=== PATIENT | male | born 1950 | race Caucasian/White ===

== ENCOUNTER 2016-10-08 16:46 | Emergency (ER) | payer OTHER ==
[~2016-10-08] VITALS: Ht 185.4 cm; Wt 106.1 kg
[~2016-10-08 16:46] MED LIST: ASPIRIN325 MG PO; CINNAMON PLUS1 EACH PO; CLARITIN10 M3 PO; CRESTOR40 MG PO; DAILY VALUE1 EACH PO; DAILY VITE1 EAC1 PO; DIOVAN HCT 81 TABLET PO; DOCUSATE SODIU100 MG PO; FISH OIL 1,0001 EAC7 PO; GLUCOSAMINE-CH1 EA48 PO; JANUVIA100 MG PO; L-LYSINE1000 M1 PO; L-LYSINE500 M1 PO; LEVAQUIN750 MG PO; LO-DOSE ASPIRIN81 M1 PO; LOPRESSOR100 M1 PO; MELOXICAM7.5 MG PO; METFORMIN HCL1000 MG PO; METFORMIN HCL850 MG PO; NIASPAN,SLO-NI500 MG PO; PAROXETINE HCL20 MG PO; PRADAXA150 MG PO; ROPINIROLE HCL1 MG PO; SOTALOL80 MG PO; TYLENOL REGULA325 MG PO; VALSARTAN-HCTZ1 EACH PO; VITAMIN C1000 M1 PO; VITAMIN C1000 MG PO; ZETIA10 MG PO; ZINC50 M2 PO; [UNRECOGNIZED DRUG - OTHER] TP
[2016-10-08 17:17] LABS: MEAN PLAT.VOLUME 10.4 uM^3 (9.0-12.4); PLATELET COUNT 148 K/uL (156-360)
[2016-10-08 17:29] LABS: HEMATOCRIT 37.2 % (38.0-50.0); MCH 30.1 PG (29.0-34.0); MCV 94.2 FL (86-99); RBC DIS.WIDTH-SD 47.8 % (39-53); RED BLOOD COUNT 3.95 M/uL (4.00-5.50)
[2016-10-08 17:35] LABS: CHLORIDE 105 mEq/L (99-109); POTASSIUM 4.4 mEq/L (3.7-5.4); SODIUM 139 mEq/L (136-147)
[2016-10-08 17:37] LABS: GLUCOSE 188 mg/dL (70-99); WHITE BLOOD COUNT 70.3 K/uL (4.1-10.2)
[2016-10-08 17:38] LABS: ANION GAP 10 MEQ/L (2-14)
[2016-10-08] MEDS ORDERED: TOUJEO SOL300 UNIT/1 SC (17:40)
[2016-10-08] MEDS ORDERED: FLOMAX0.4 MG PO (17:40)
[2016-10-08 17:41] LABS: GFR ESTIMATE (CALCULATED) > 59 mL/min/
[2016-10-08] MEDS ORDERED: DIGITEK250 MC2 PO (17:41)
[2016-10-08] MEDS ORDERED: CARTIA XT240 MG PO (17:41)
[2016-10-08 17:42] LABS: UREA NITROGEN (BUN) 17 mg/dL (9-23)
[2016-10-08] MEDS ORDERED: METOPROLOL TART25 MG PO (17:42)
[2016-10-08 17:47] LABS: TROP-I INTERPRETATION NEGATIVE; TROPONIN-I < 0.01 ng/mL (0.0-0.30)
[2016-10-08] MEDS ORDERED: LEVAQUIN750 MG PO (21:09)
[2016-10-08 22:33] VITALS: BP 119/67
== END 2016-10-08 22:35 | disposition home or self-care (01) ==
LOC: EME 16:46
DX: J18.9 Pneumonia, unspecified organism (principal); R07.9 Chest pain, unspecified; E11.9 Type 2 diabetes mellitus without complications; E78.5 Hyperlipidemia, unspecified; I10 Essential (primary) hypertension; K21.9 Gastro-esophageal reflux disease without esophagitis; I48.91 Unspecified atrial fibrillation; Z79.84 Long term (current) use of oral hypoglycemic drugs; Z79.82 Long term (current) use of aspirin; Z79.4 Long term (current) use of insulin
CPT/HCPCS: 71020; 71275; 74176; 80048; 84484; 85027; 93005; 99281; 99284; J1956; J7030

== ENCOUNTER 2017-07-15 15:53 | Emergency (ER) | payer OTHER ==
[~2017-07-15] VITALS: Ht 185.4 cm; Wt 110.8 kg
[~2017-07-15 15:53] MED LIST changes: +CARTIA XT240 MG PO; +DIGITEK250 MC2 PO; +FLOMAX0.4 MG PO; +METOPROLOL TART25 MG PO; +TOUJEO SOL300 UNIT/1 SC
[2017-07-15 17:07] LABS: PLATELET COUNT 107 K/uL (156-360)
[2017-07-15 17:14] LABS: HEMATOCRIT 39.6 % (38.0-50.0); HEMOGLOBIN 12.9 G/DL (12.5-16.6); MCH 30.1 PG (29.0-34.0); MCHC 32.6 G/DL (30.0-36.0); MCV 92.5 FL (86-99); RBC DIS.WIDTH-CV 14.5 % (11.8-14.6); RED BLOOD COUNT 4.28 M/uL (4.00-5.50)
[2017-07-15 17:16] LABS: CHLORIDE 105 mEq/L (99-109); POTASSIUM 4.2 mEq/L (3.7-5.4); SODIUM 136 mEq/L (136-147)
[2017-07-15 17:17] LABS: GLUCOSE 175 mg/dL (70-99)
[2017-07-15 17:21] LABS: GFR ESTIMATE (CALCULATED) > 59 mL/min/ (58.99-99999)
[2017-07-15 17:22] LABS: UREA NITROGEN (BUN) 22 mg/dL (9-23)
[2017-07-15 17:48] LABS: RBC DIS.WIDTH-SD 48.3 % (39-53)
[2017-07-15 17:49] LABS: WHITE BLOOD COUNT 80.5 K/uL (4.1-10.2)
[2017-07-15 17:56] LABS: APPEARANCE CLOUDY ((CLEAR)); BILIRUBIN NEGATIVE; BLOOD LARGE; COLOR AMBER ((YELLOW)); GLUCOSE (STRIP) NEGATIVE; KETONES NEGATIVE; LEUKOCYTES SMALL; NITRITE NEGATIVE; PROTEIN (STRIP) 100; UROBILINOGEN 0.2 MG/DL (0.2-1.0)
[2017-07-15 18:09] LABS: EPITHELIAL CELLS RARE /HPF; RED BLOOD CELLS TNTC /HPF (0-5); WHITE BLOOD CELLS 20-30 /HPF (0-5)
[2017-07-15 18:10] LABS: AMORPHOUS URATES CRYSTALS 1+; BACTERIA 2+ /HPF; MUCUS 1+ /LPF; UCUL ADDED? YES
[2017-07-15] MEDS ORDERED: CIPRO500 MG PO (18:50)
[2017-07-15 19:17] VITALS: BP 127/91
== END 2017-07-15 19:18 | disposition home or self-care (01) ==
LOC: EME 15:53
PROVIDERS: Nurse Practitioner Family
DX: N39.0 Urinary tract infection, site not specified (principal); N40.0 Benign prostatic hyperplasia without lower urinary tract symptoms; E11.9 Type 2 diabetes mellitus without complications; Z79.84 Long term (current) use of oral hypoglycemic drugs; E78.5 Hyperlipidemia, unspecified; Z85.6 Personal history of leukemia; I48.91 Unspecified atrial fibrillation; I10 Essential (primary) hypertension; F41.9 Anxiety disorder, unspecified; K21.9 Gastro-esophageal reflux disease without esophagitis; Z95.5 Presence of coronary angioplasty implant and graft; Z88.2 Allergy status to sulfonamides; Z88.0 Allergy status to penicillin
CPT/HCPCS: 76770; 80048; 81003; 85027; 99281; 99284; J0696; J7030